=== PATIENT | male | born 1990 | race African-American/Black ===

== ENCOUNTER 2021-04-19 19:39 | Emergency (ER) | payer OTHER ==
[~2021-04-19] VITALS: Ht 170.2 cm; Wt 85.3 kg
[2021-04-19 20:23] LABS: PLATELET COUNT 206 K/uL (142-355)
[2021-04-19 23:53] VITALS: BP 118/76; TEMP 98.4
== END 2021-04-19 23:53 | disposition home or self-care (01) ==
LOC: EDBD 19:39 → ED 19:39
PROVIDERS: Emergency Medicine Emergency Medical Services
DX: R73.9 Hyperglycemia, unspecified (principal)
CPT/HCPCS: 36415; 80053; 81000; 82150; 82948; 83690; 85027; 96360; 96361; 96375; 99284; J1815; J1885; J2405; Q9963